=== PATIENT | male | born 2000 | race Two or more races ===

== ENCOUNTER 2022-05-06 16:38 | Inpatient (IN) | payer OTHER ==
[2022-05-06 18:30] VITALS: BMI 18.6
[2022-05-06] MEDS ORDERED: IBUPROFEN 400 MG TABLET (FP) PO PRN (21:12)
[2022-05-06] MEDS ORDERED: guaiFENesin 200 MG/10 ML 10 ML UNIT-DOSE CUPS PO PRN (21:12)
[2022-05-06] MEDS ORDERED: NALOXONE HCL (KLOXXADO) 8 MG SPRAY NS PRN (21:12)
[2022-05-06] MEDS ORDERED: P-EPHED 60MG/TRIPROLIDI 2.5MG TABLET PO PRN (21:12)
[2022-05-06] MEDS ORDERED: IBUPROFEN 600 MG TABLET (FP) PO PRN (21:12)
[2022-05-06] MEDS ORDERED: BISMUTH SUBSALICYLATE 524 MG/30 ML PO PRN (21:12)
[2022-05-06] MEDS ORDERED: METHOCARBAMOL 500 MG TABLET PO PRN (21:12)
[2022-05-06] MEDS ORDERED: MAGNESIUM HYDROX 2400MG/30ML ORAL SUSPENSION 30 ML CUP PO PRN (21:12)
[2022-05-06] MEDS ORDERED: NALOXONE HCL 0.4 MG/ML VIAL IM PRN (21:12)
[2022-05-06] MEDS ORDERED: DICYCLOMINE HCL 10 MG CAPSULE PO PRN (21:12)
[2022-05-06] MEDS ORDERED: BENZOCAINE/MENTHOL (CHLORASEPTIC ) LOZENGE MM PRN (21:12)
[2022-05-06] MEDS ORDERED: hydrOXYzine PAMOATE 25 MG CAPSULE (FP) PO PRN (21:12)
[2022-05-06] MEDS ORDERED: LOPERAMIDE HCL 2 MG CAPSULE PO PRN (21:12)
[2022-05-06] MEDS ORDERED: NICOTINE POLACRILEX 4 MG GUM BUC PRN (21:12)
[2022-05-06] MEDS ORDERED: ONDANSETRON *ODT* 4 MG TABLET SL PRN (21:12)
[2022-05-06] MEDS ORDERED: ACETAMINOPHEN 325 MG TABLET (FP) PO PRN ×2 (21:12)
[2022-05-06] MEDS ORDERED: MAGNESIUM CITRATE 300 ML BOTTLE PO PRN (21:12)
[2022-05-06] MEDS ORDERED: MAG HYDROX/AL HYDROX/SIMETH 30 ML UNIT-DOSE CUP PO PRN (21:12)
[2022-05-06] MEDS ORDERED: MELATONIN 5 MG TABLETS PO SCH (22:00)
[2022-05-06] MEDS ORDERED: THIAMINE HCL 100 MG TABLET (FP) PO SCH (22:00)
[2022-05-07 09:31] VITALS: BP 115/66; PULSE 58; RESP 16; TEMP 97.8
[2022-05-07] MEDS ORDERED: NICOTINE 21 MG/24 HOURS TOPICAL PATCH TD SCH (10:00)
[2022-05-07] MEDS ORDERED: PRENATAL VITAMINS W/ FOLIC ACID TABLET (FP) PO SCH (10:00)
[2022-05-07 10:15] LABS: HEMATOCRIT 38.8 % (35.4-49); HEMOGLOBIN 12.9 GM/dL (11.7-16.9); MCH 28.2 pg (25.7-33.7); MCHC 33.2 g/dl (32.0-35.9); MEAN CELL VOLUME 85.1 fl (80-96); MEAN PLT VOLUME 8.6 fl (7.5-11.1); PLATELET COUNT 247 10^3/uL (134-434); RBC 4.56 M/mm3 (4.00-5.60); RDW 13.5 % (11.9-15.9)
[2022-05-07 11:14] LABS: BLOOD UREA NITROGEN 7.1 mg/dL (7-18); CREATININE 0.6 mg/dL (0.55-1.3)
[2022-05-07 11:15] LABS: BILIRUBIN,TOTAL 0.5 mg/dL (0.2-1); TOT PROT 5.9 g/dl (6.4-8.2)
[2022-05-07 11:16] LABS: ALBUMIN 3.1 g/dl (3.4-5.0)
[2022-05-07 11:19] LABS: CALCIUM 9.2 mg/dL (8.5-10.1)
== END 2022-05-07 10:09 | disposition home or self-care (01) | DRG 773 ==
LOC: YASAS 16:38 → Y3N 23:31
PROVIDERS: ADMIT Allergy & Immunology; ATTEND Surgery
PROC: HZ2ZZZZ Detoxification Services for Substance Abuse Treatment (ICD-10-PCS; principal; 2022-05-06)
DX: F11.23 Opioid dependence with withdrawal (principal); F10.20 Alcohol dependence, uncomplicated; F14.20 Cocaine dependence, uncomplicated; F12.20 Cannabis dependence, uncomplicated; F17.210 Nicotine dependence, cigarettes, uncomplicated; F19.24 Other psychoactive substance dependence with psychoactive substance-induced mood disorder; F32.9 Major depressive disorder, single episode, unspecified; F43.10 Post-traumatic stress disorder, unspecified; J45.20 Mild intermittent asthma, uncomplicated; D64.9 Anemia, unspecified; Z86.19 Personal history of other infectious and parasitic diseases
CPT/HCPCS: 36415; 80053; 85027; 86780; C9803-CS; U0003; U0005

== ENCOUNTER 2022-12-17 16:49 | Inpatient (IN) | payer OTHER ==
[2022-12-17 17:28] VITALS: BMI 16.2
[2022-12-17] MEDS ORDERED: guaiFENesin 600 MG TABLET.ER (FP) PO PRN (20:44)
[2022-12-17] MEDS ORDERED: ONDANSETRON *ODT* 4 MG TABLET SL PRN (20:44)
[2022-12-17] MEDS ORDERED: ACETAMINOPHEN 325 MG TABLET (FP) PO PRN (20:44)
[2022-12-17] MEDS ORDERED: BISMUTH SUBSALICYLATE 524 MG/30 ML PO PRN (20:44)
[2022-12-17] MEDS ORDERED: NALOXONE HCL 0.4 MG/ML VIAL IM PRN (20:44)
[2022-12-17] MEDS ORDERED: MAG HYDROX/AL HYDROX/SIMETH 30 ML UNIT-DOSE CUP PO PRN (20:44)
[2022-12-17] MEDS ORDERED: DICYCLOMINE HCL 10 MG CAPSULE PO PRN (20:44)
[2022-12-17] MEDS ORDERED: LOPERAMIDE HCL 2 MG CAPSULE PO PRN (20:44)
[2022-12-17] MEDS ORDERED: NALOXONE HCL (KLOXXADO) 8 MG SPRAY NS PRN (20:44)
[2022-12-17] MEDS ORDERED: MAGNESIUM HYDROX 2400MG/30ML ORAL SUSPENSION 30 ML CUP PO PRN (20:44)
[2022-12-17] MEDS ORDERED: POLYETHYLENE GLYCOL (HEALTHYLAX) 3350 17 GM PACKET PO PRN (20:44)
[2022-12-17] MEDS ORDERED: IBUPROFEN 400 MG TABLET (FP) PO PRN (20:44)
[2022-12-17] MEDS ORDERED: METHOCARBAMOL 500 MG TABLET PO PRN (20:44)
[2022-12-17] MEDS ORDERED: BENZONATATE 200 MG CAPSULE PO PRN (20:44)
[2022-12-17] MEDS ORDERED: IBUPROFEN 600 MG TABLET (FP) PO PRN (20:44)
[2022-12-17] MEDS ORDERED: NICOTINE 10 MG CARTRIDGE (INHALER) IH PRN (20:44)
[2022-12-17] MEDS ORDERED: BENZOCAINE/MENTHOL (CHLORASEPTIC ) LOZENGE MM PRN (20:44)
[2022-12-17] MEDS ORDERED: THIAMINE HCL 100 MG TABLET (FP) PO SCH (22:00)
[2022-12-17] MEDS ORDERED: MELATONIN 5 MG TABLETS PO SCH (22:00)
[2022-12-18 01:35] VITALS: RESP 18
[2022-12-18] MEDS ORDERED: diazePAM 5 MG TABLET PO PRN (02:06)
[2022-12-18] MEDS ORDERED: diazePAM 5 MG TABLET PO SCH (05:00)
[2022-12-18 06:58] VITALS: BP 94/54; PULSE 66; TEMP 98.4
[2022-12-18] MEDS ORDERED: NICOTINE 21 MG/24 HOURS TOPICAL PATCH TD SCH (10:00)
[2022-12-18] MEDS ORDERED: PRENATAL VITAMINS W/ FOLIC ACID TABLET (FP) PO SCH (10:00)
[2022-12-19] MEDS ORDERED: diazePAM 5 MG TABLET PO SCH (06:00)
[2022-12-20] MEDS ORDERED: diazePAM 5 MG TABLET PO SCH (06:00)
[2022-12-21] MEDS ORDERED: diazePAM 5 MG TABLET PO ONE (06:00)
== END 2022-12-18 08:53 | disposition left against medical advice (07) | DRG 770 ==
LOC: YASAS 16:49 → Y6N 12-18 00:53
PROVIDERS: ADMIT Allergy & Immunology; ATTEND Surgery
PROC: HZ2ZZZZ Detoxification Services for Substance Abuse Treatment (ICD-10-PCS; principal; 2022-12-18)
DX: F13.230 Sedative, hypnotic or anxiolytic dependence with withdrawal, uncomplicated (principal); F11.20 Opioid dependence, uncomplicated; F14.20 Cocaine dependence, uncomplicated; F12.20 Cannabis dependence, uncomplicated; F17.210 Nicotine dependence, cigarettes, uncomplicated; F31.9 Bipolar disorder, unspecified; F43.10 Post-traumatic stress disorder, unspecified; J45.20 Mild intermittent asthma, uncomplicated; B18.2 Chronic viral hepatitis C; Z88.2 Allergy status to sulfonamides; Z59.00 Homelessness unspecified; Z91.018 Allergy to other foods
CPT/HCPCS: C9803-CS; U0003; U0005